=== PATIENT | male | born 1970 | race Hispanic/Latino ===

== ENCOUNTER → 2019-08-23 | Day surgery (SDC) | payer OTHER ==
[~2019-08-23] MED LIST: AMLODIPINE BESY10 MG PO; CEFAZOLIN SOD 1 GM/NS 50ML 50 ML IV ONE; DEXAMETHASONE SOD PHOS INJ 4 MG/ML VIAL ONE; FENTANYL CITRATE/PF 100MCG/2 ML INJ ONE; KETOROLAC TROMETHAMINE 30 MG/ML VIAL ONE; LIDOCAINE HCL 2% LOCAL INJ 5 ML SDV VIAL INJ ONE; ONDANSETRON HCL INJ 2MG/ML 2ML 2 MG/ML VIAL ONE; PRAVASTATIN SOD20 MG PO; PROPOFOL IV EMULSION 10 MG/ML 20 ML VIAL ONE; SEVOFLURANE INHAL SOLN 250 ML PEN BTL ONE
[2019-08-23 11:03] VITALS: BP 145/83
--- NOTE | 2019-08-23 11:17 | Operative Report ---
DATE OF PROCEDURE: 08/23/2019 SURGEON: Kong Perez MD HEALTH COMPANION: Chad Brown, certified PA. PREOPERATIVE DIAGNOSIS: Bilateral carpal tunnel syndrome. POSTOPERATIVE DIAGNOSIS: Bilateral carpal tunnel syndrome. PROCEDURE: Bilateral endoscopic carpal tunnel release. INDICATIONS: The patient is a 48-year-old gentleman, who has clinic signs and symptoms consistent with bilateral carpal tunnel syndrome. He has failed conservative management and would like to proceed with definitive intervention. The risks and benefits of an endoscopic versus open carpal tunnel release have been explained. He states he understands and wishes to proceed. PROCEDURE IN DETAIL: The patient was brought to the operating room and placed under general anesthetic. Both upper extremities were prepped and draped in a sterile manner. A preoperative time-out was performed. Initial attention was directed towards the right upper extremity. The extremity was exsanguinated and a proximal tourniquet was inflated to 250 mmHg. A small incision was made over the flexion crease of the right wrist. The palmaris longus was retracted to the radial side of the wound. The flexor retinaculum was elevated and incised with a pair of tenotomy scissors. An elevator was used to tease the tenosynovium off the undersurface of the transverse carpal ligament. Dilators were placed and the hook of the hamate was palpated. The [employer] endoscope was then placed into the carpal tunnel. The undersurface of the transverse carpal ligament was cleanly visualized without evidence of soft tissue interposition. The knife was deployed and the ligament was cut from distal to proximal. Care was taken to ensure a full-thickness cut. Palmar fat was noted to extrude into the visibility of the wound. The wound was then closed with two interrupted nylon stitches. A sterile bandage was applied. The tourniquet was deflated and attention was directed towards the left upper extremity. The same procedure was then performed. A bandage was placed on that side as well. The patient was extubated and transported to the recovery room in stable condition. There was no blood loss and all needle and sponge counts were correct. Kong Perez MD DR/BUD /[id number]
== END | disposition home or self-care (01) ==
LOC: OR 06:45
PROVIDERS: ATTEND Specialist
DX: G56.03 Carpal tunnel syndrome, bilateral upper limbs (principal); I10 Essential (primary) hypertension; E78.5 Hyperlipidemia, unspecified; E66.01 Morbid (severe) obesity due to excess calories; K21.9 Gastro-esophageal reflux disease without esophagitis; K44.9 Diaphragmatic hernia without obstruction or gangrene; R06.83 Snoring; Z01.812 Encounter for preprocedural laboratory examination; Z11.59 Encounter for screening for other viral diseases; Z01.810 Encounter for preprocedural cardiovascular examination; Z68.38 Body mass index [BMI] 38.0-38.9, adult
CPT/HCPCS: 29848; 87635; 93005; J0690; J1100; J1885; J2001; J2405; J2704; J3010

== ENCOUNTER → 2020-11-21 | Day surgery (SDC) | payer BC ==
[~2020-11-21] MED LIST changes: +ACETAMINOPHEN 1000 MG/100 ML 100 ML IV ONE; +ALTOPREV40 MG PO; +BUPIVACAINE HCL 0.5% INJ 30 ML VIAL INJ ONE; -CEFAZOLIN SOD 1 GM/NS 50ML 50 ML IV ONE; +EPHEDRINE SULFATE INJ 50 MG/ML VIAL ONE; -KETOROLAC TROMETHAMINE 30 MG/ML VIAL ONE; +LOSARTAN-HCTZ1 EACH PO; +MIDAZOLAM HCL 2 MG/2 ML VIAL ONE; +NEOSTIGMINE 1 MG/ML 10ML VIAL ONE; +OMEPRAZOLE40 MG PO; +POVIDONE IODINE 0.05% 0.05 % ML PO ONE; +SODIUM CHLORIDE 0.9% 50ML 100 ML ONE; +[UNRECOGNIZED DRUG - REMARK]
[2020-11-21 11:37] VITALS: BP 123/63
== END | disposition home or self-care (01) ==
LOC: OR 06:54
PROVIDERS: ATTEND Podiatrist Foot & Ankle Surgery
DX: M72.2 Plantar fascial fibromatosis (principal); M77.31 Calcaneal spur, right foot; I10 Essential (primary) hypertension; K44.9 Diaphragmatic hernia without obstruction or gangrene
CPT/HCPCS: 28104; 29893; J0131; J0690; J1100; J2001; J2250; J2405; J2704; J2710; J3010; 76000

== ENCOUNTER 2023-12-31 10:50 | Emergency (ER) | payer BC, OTHER ==
[~2023-12-31] VITALS: Ht 172.7 cm; Wt 106.1 kg
[~2023-12-31 10:50] MED LIST changes: -ACETAMINOPHEN 1000 MG/100 ML 100 ML IV ONE; -BUPIVACAINE HCL 0.5% INJ 30 ML VIAL INJ ONE; -DEXAMETHASONE SOD PHOS INJ 4 MG/ML VIAL ONE; -EPHEDRINE SULFATE INJ 50 MG/ML VIAL ONE; -FENTANYL CITRATE/PF 100MCG/2 ML INJ ONE; -LIDOCAINE HCL 2% LOCAL INJ 5 ML SDV VIAL INJ ONE; -MIDAZOLAM HCL 2 MG/2 ML VIAL ONE; -NEOSTIGMINE 1 MG/ML 10ML VIAL ONE; -ONDANSETRON HCL INJ 2MG/ML 2ML 2 MG/ML VIAL ONE; -POVIDONE IODINE 0.05% 0.05 % ML PO ONE; -PROPOFOL IV EMULSION 10 MG/ML 20 ML VIAL ONE; -SEVOFLURANE INHAL SOLN 250 ML PEN BTL ONE; -SODIUM CHLORIDE 0.9% 50ML 100 ML ONE
[2023-12-31 10:57] VITALS: TEMP 99.3
[2023-12-31] MEDS: ONDANSETRON HCL INJ 2MG/ML 2ML 2 MG/ML VIAL IV STA (11:30)
[2023-12-31] MEDS: HYDROCODONE/APAP 5MG-325MG TAB PO ONE (11:32)
[2023-12-31] MEDS ORDERED: ONDANSETRON HCL 4 MG ORAL DISINTEGRATING TAB ONE (11:32)
[2023-12-31] MEDS: ONDANSETRON HCL 4 MG ORAL DISINTEGRATING TAB PO ONE (11:32)
[2023-12-31 13:40] VITALS: PULSE 76; RESP 16; O2SAT 94
== END 2023-12-31 13:35 | disposition home or self-care (01) ==
LOC: FSED 10:57
DX: M54.50 Low back pain, unspecified (principal)
CPT/HCPCS: 74176; 81003; 99284; Q0162; J2405